=== PATIENT | female | born 1940 | race Caucasian/White ===

== ENCOUNTER 2020-04-08 08:18 | Outpatient (CLI) | payer MEDICARE, OTHER ==
[~2020-04-08] VITALS: Ht 182.9 cm; Wt 79.5 kg
[2020-04-08] MEDS ORDERED: metoprolol tartrate 1mg/ml inj IV PRN (09:40)
[2020-04-08] MEDS ORDERED: normal saline 500ml IV soln 500 ML IV ONE (09:40)
[2020-04-08] MEDS ORDERED: regadenoson 0.4mg/5ml syringe IV ONE (09:40)
[2020-04-08] MEDS ORDERED: nitroGLYCERIN 0.4mg SUBLingual tab SL PRN (09:40)
[2020-04-08] MEDS ORDERED: aminophylline 250mg/10ml inj. IV PRN (09:40)
[2020-04-08 10:34] VITALS: BP 146/59
[2020-04-08 10:42] VITALS: BP 117/55
[2020-04-08 10:43] VITALS: BP 125/56
[2020-04-08 10:44] VITALS: BP 120/58
[2020-04-08 10:45] VITALS: BP 126/58
[2020-04-08 10:46] VITALS: BP 125/60
== END 2020-04-08 23:59 | disposition home or self-care (01) ==
LOC: RAD 08:18 → MERGE 08:18 → RAD 23:59
PROVIDERS: ATTEND Internal Medicine Cardiovascular Disease
DX: I42.9 Cardiomyopathy, unspecified (principal)
CPT/HCPCS: 78452; 93017; A9500; J2785; J7040

== ENCOUNTER 2023-05-15 08:55 | Outpatient (CLI) | payer MEDICARE, OTHER ==
[2023-05-15] VITALS (8 sets, daily range): BP systolic 126–151; BP diastolic 54–67; PULSE 71–89; RESP 18–22; O2SAT 98–99
[~2023-05-15] VITALS: Ht 180.3 cm; Wt 73.0 kg
[2023-05-15] MEDS ORDERED: regadenoson 0.4mg/5ml syringe IV ONE (10:25)
== END 2023-05-15 23:59 | disposition home or self-care (01) ==
LOC: RAD 08:55
PROVIDERS: ATTEND Internal Medicine Cardiovascular Disease
DX: R94.31 Abnormal electrocardiogram [ECG] [EKG] (principal); R06.02 Shortness of breath; R53.83 Other fatigue
CPT/HCPCS: 78452; 93017; A9500; J2785

== ENCOUNTER 2023-08-28 08:38 | Day surgery (SDC) | payer MEDICARE, OTHER ==
[~2023-08-28] VITALS: Ht 175.3 cm; Wt 74.8 kg
[2023-08-28] VITALS (11 sets, daily range): BP systolic 102–155; BP diastolic 48–74; PULSE 59–79; RESP 16; TEMP 97.7; O2SAT 87–98
[2023-08-28] MEDS ORDERED: TEMA15CA PO (09:39)
[2023-08-28] MEDS ORDERED: CARV-50 PO (09:39)
[2023-08-28] MEDS ORDERED: PRAM0.5T12 PO (09:39)
[2023-08-28 09:40] LABS: BASOPHILS # (AUTO) 0.1 X10'3 (0-0.2); EOSINOPHILS # (AUTO) 0.3 X10'3 (0-0.9); EOSINOPHILS % (AUTO) 4.2 % (0-6); HEMATOCRIT 32.7 % (35.0-45.0); HEMOGLOBIN 10.9 g/dl (12.0-16.0); LYMPHOCYTES # (AUTO) 2.3 X10'3 (1.1-4.8); MEAN CORPUSCULAR HEMOGLOBIN 33.7 PG (27.0-31.0); MEAN CORPUSCULAR HGB CONC 33.4 g/dL (33.0-36.5); MEAN CORPUSCULAR VOLUME 100.8 FL (78-98); MEAN PLATELET VOLUME 7.7 FL (7.4-10.4); MONOCYTES # (AUTO) 0.7 X10'3 (0-0.9); MONOCYTES % (AUTO) 8.5 % (2-12); NEUTROPHILS # (AUTO) 4.5 X10'3 (1.8-7.7); NEUTROPHILS % (AUTO) 57.3 % (42-75); PLATELET COUNT 218 X10'3 (140-440); RED BLOOD COUNT 3.24 X10'6 (4.20-5.60); RED CELL DISTRIBUTION WIDTH 13.6 % (11.5-14.5); WHITE BLOOD COUNT 7.9 X10'3 (4.5-11.0)
[2023-08-28 09:46] LABS: ALBUMIN 3.7 G/DL (3.4-5.0); ANION GAP 10 (8-16); BLOOD UREA NITROGEN 36 MG/DL (7-18); BUN/CREATININE RATIO 23.7 (10.0-20.0); CALCIUM 8.8 MG/DL (8.5-10.1); CHLORIDE 101 MMOL/L (99-107); CREATININE 1.52 MG/DL (0.40-0.90); GLUCOSE 93 MG/DL (70-104); POTASSIUM 4.5 MMOL/L (3.5-5.1); SODIUM 137 MMOL/L (135-145); eCRCL 30 ML/MIN; eGFR 33 ML/MIN
[2023-08-28 09:50] LABS: APTT 25 SECONDS (22-32); PROTHROMBIN TIME 10.9 SECONDS (9.0-12.0)
[2023-08-28] MEDS: diphenhydrAMINE 25mg capsule PO PRN (09:51)
[2023-08-28] MEDS: LORazepam 0.5 MG tablet PO PRN (09:51)
[2023-08-28] MEDS: normal saline 1,000 ML IV SCH (09:52)
[2023-08-28] MEDS ORDERED: acetylcysteine 200 MG/ml 4ml vial PO PRN (10:06)
[2023-08-28] MEDS ORDERED: iohexol 350MG/ML 100ml bottle IV ONE (10:18)
[2023-08-28] MEDS ORDERED: fentaNYL/PF 50MCG/1 ML 2ML syringe ONE (10:18)
[2023-08-28] MEDS ORDERED: iohexol 350 MG/ML 50ML vial IV ONE (10:18)
[2023-08-28] MEDS ORDERED: LIDOcaine 1% (10mg/ml) 2ml vial ONE (10:18)
[2023-08-28] MEDS ORDERED: midazolam 1 mg/ML 2ml injection ONE (10:18)
[2023-08-28] MEDS ORDERED: heparin 1,000unit/ml 10ml vial 10 ML ONE (10:18)
[2023-08-28] MEDS ORDERED: verapamil 2.5 mg/ml inj IV ONE (10:18)
[2023-08-28] MEDS ORDERED: nitroGLYCERIN 500mcg/5mL D5W 5 ML IV ONE (10:20)
[2023-08-28] MEDS ORDERED: sodium bicarbonate 1meq/ml inj 150 ML in dextrose 5%-water 1,000 ML IV SCH (12:50)
[2023-08-28] MEDS: sodium bicarbonate 1meq/ml syr 150 ML in dextrose 5%-water 1,000 ML IV SCH (13:10)
== END 2023-08-28 16:10 | disposition home or self-care (01) ==
LOC: SSTAY O 08:38
PROVIDERS: ATTEND Internal Medicine Cardiovascular Disease
DX: R94.39 Abnormal result of other cardiovascular function study (principal); I25.10 Atherosclerotic heart disease of native coronary artery without angina pectoris; I42.9 Cardiomyopathy, unspecified; N18.9 Chronic kidney disease, unspecified; M79.7 Fibromyalgia; Z79.899 Other long term (current) drug therapy; Z90.10 Acquired absence of unspecified breast and nipple; Z90.49 Acquired absence of other specified parts of digestive tract; Z90.710 Acquired absence of both cervix and uterus; Z96.649 Presence of unspecified artificial hip joint; Z98.49 Cataract extraction status, unspecified eye; Z98.890 Other specified postprocedural states; Z88.2 Allergy status to sulfonamides; Z88.5 Allergy status to narcotic agent
CPT/HCPCS: 36415; 76937; 80048; 85025; 85610; 85730; 93005; 93458; 99152; 99153; J1644; J2250; J3010; J3490; J7030; J7070; Q0163; Q9967; A6258; A6402; C1725; C1894